=== PATIENT | male | born 1985 | race Caucasian/White ===

== ENCOUNTER → 2016-10-24 | Outpatient (CLI) | payer OTHER ==
--- NOTE | 2016-10-24 09:05 | KCIC ---
PROCEDURE Complete abdominal ultrasound. HISTORY Abdominal pain, abdominal wall mass. TECHNIQUE Real-time ultrasound imaging of the abdomen is performed. COMPARISON None. FINDINGS Grayscale images in the midline in the area of palpable concern are unremarkable. The liver measures 17.9 cm in length and is increased in echogenicity. Considerations include fatty infiltration or hepatitis. Portal flow is hepatopetal. Size is borderline enlarged. The pancreas is homogeneous in appearance and no focal enlargement is seen. Pancreas tail is not well seen. The gallbladder appears normal and no gallstones or gallbladder wall thickening is seen. No pericholecystic fluid is seen. No positive Prater's sign was elicited during transducer examination of the gallbladder. No extrahepatic biliary ductal dilatation is seen and the extrahepatic bile duct measures 4 mm. The right kidney measures 11.2 cm in length and no hydronephrosis or renal mass or perinephric fluid collection is seen. The left kidney measures 11.6 cm in length and no hydronephrosis or renal mass or perinephric fluid collection is seen. The spleen measures 9.5 cm in length and is homogeneous in appearance. No focal aneurysmal dilatation of the abdominal aorta is seen. Proximal abdominal aorta is obscured. The IVC is unremarkable. No ascites is seen. IMPRESSION 1. Increased echogenicity of the liver, considerations include fatty infiltration or hepatitis. 2. Borderline hepatomegaly. 3. Midline abdominal area of palpable concern is negative sonographically. Electronically signed by: Taco Teresa MD (Oct 24, 2016 09:04:31)
== END | disposition home or self-care (01) ==
LOC: KCIC US 07:42
PROVIDERS: ATTEND Nurse Practitioner Family
DX: K76.89 Other specified diseases of liver (principal); R16.0 Hepatomegaly, not elsewhere classified
CPT/HCPCS: 76700

== ENCOUNTER 2021-10-11 10:47 | Emergency (ER) | payer BC, OTHER ==
[~2021-10-11] VITALS: Ht 177.8 cm; Wt 131.0 kg
[2021-10-11] MEDS ORDERED: IV RINGERS,LACTATED 1000ML 1,000 ML IV SCH (11:30)
[2021-10-11 11:37] LABS: BASO # 0.1 x10^3/uL (0.0-0.2); BASO % 1 % (0-3); EOS # 0.2 x10^3/uL (0.0-0.7); EOS % 2 % (0-3); HEMATOCRIT 41.8 % (39.0-53.0); HEMOGLOBIN 14.1 g/dL (13.0-17.5); LYMPH # 2.9 x10^3/uL (1.0-4.8); LYMPH % 42 % (24-48); MEAN CORPUSCULAR HEMOGLOBIN 30 pg (25-35); MEAN CORPUSCULAR HGB CONC 34 g/dL (31-37); MEAN CORPUSCULAR VOLUME 88 fL (79-100); MONO # 0.5 x10^3/uL (0.0-1.1); MONO % 8 % (0-9); NEUT # 3.2 x10^3/uL (1.8-7.7); NEUT % 47 % (31-73); PLATELET COUNT 364 x10^3/uL (140-400); RED BLOOD COUNT 4.78 x10^6/uL (4.30-5.70); RED CELL DISTRIBUTION WIDTH 13.8 % (11.5-14.5); WHITE BLOOD COUNT 6.9 x10^3/uL (4.0-11.0)
[2021-10-11 11:45] LABS: CALCIUM 9.6 mg/dL (8.5-10.1); GFR 84.5; POTASSIUM 4.2 mmol/L (3.5-5.1)
[2021-10-11 11:50] LABS: ALBUMIN 4.1 g/dL (3.4-5.0); ALBUMIN/GLOBULIN RATIO 1.1 (1.0-1.7); TOTAL BILIRUBIN 0.4 mg/dL (0.2-1.0); TOTAL PROTEIN 7.9 g/dL (6.4-8.2)
--- NOTE | 2021-10-11 12:05 | RAD ---
EXAMINATION: XR CHEST 1V CLINICAL HISTORY: Chest pain radiating to back and LUE. EXAM DATE/TIME: 10/11/2021 11:25 AM COMPARISON: None FINDINGS: Lines, Tubes, and Devices: None. Cardiomediastinal Silhouette: Within normal limits. Lungs and Pleura: No evidence of focal airspace consolidation or pleural effusion. Pulmonary vasculat ure unremarkable. Bones and Soft Tissues: No acute osseous abnormality. IMPRESSION: No evidence of acute cardiopulmonary abnormality. Electronically signed by: Nikhil Cabral DO (10/11/2021 11:42 AM) [id number]
--- NOTE | 2021-10-11 12:11 | PHYS DOC ---
Past Medical History Past Medical History: GERD Additional Past Surgical Histo: GI procedure x2 in childhood for reflux Smoking Status: Former Smoker Alcohol Use: Occasionally General Adult EDM: Chief Complaint: CHEST PAIN HPI: HPI: Patient is a 36 year old male with past medical history including GERD who presents with 1 week history of chest pain. She rates his pain 5/10 and constant at rest. He states that originally, he believed it was due to his GERD, as he had a foul taste in the back of his mouth. He has taken Pepcid, but is not relieving his symptoms significantly. Today, he states that the pain is radiating to his back and down his left upper extremity. Patient denies associated symptoms including headache, diaphoresis, abdominal pain, nausea/vomiting. Patient states he had 2 procedures done in first grade in fifth grade regarding his reflux disease. He has no other complaints at this time. Review of Systems: Review of Systems: Constitutional: Denies fever, chills or generalized weakness Eyes: Denies change in visual acuity, visual field deficits or discharge HENT: Denies ear pain, nasal congestion or sore throat Respiratory: Denies cough or shortness of breath Cardiovascular: See HPI GI: See HPI : Denies dysuria or hematuria Musculoskeletal: Denies back pain or joint pain Integument: Denies rash or other skin lesion Neurologic: Denies headache, focal weakness or sensory changes Heart Score: C/O Chest Pain: Yes HEART Score for Chest Pain: HEART Score for Chest Pain Response (Comments) Value History Slighlty/Non-Suspicious 0 ECG Normal 0 Age < 45 0 Risk Factors 1 or 2 Risk Factors 1 Troponin < Normal Limit 0 Total 1 Risk Factors: Risk Factors: obesity Risk Scores: Score 0 - 3: 2.5% MACE over next 6 weeks - Discharge Home Score 4 - 6: 20.3% MACE over next 6 weeks - Admit for Clinical Observation Score 7 - 10: 72.7% MACE over next 6 weeks - Early Invasive Strategies Current Medications: Current Medications Medications (Trade) Dose Ordered Sig/Jose Start Time Stop Time Status Last Admin Dose Admin Ringer's Solution 1,000 ml @ 1,000 mls/hr Q1H 10/11/21 11:30 10/11/21 12:29 10/11/21 11:32 1,000 MLS/HR Allergies: Allergies: Allergies Coded Allergies Type Severity Reaction Last Updated Verified Penicillins Allergy Intermediate UNKNOWN 10/11/21 Yes amoxicillin Allergy Intermediate UNKNOWN 10/11/21 Yes Physical Exam: PE: Constitutional: Obese, no acute distress, non-toxic appearance. HENT: Normocephalic, atraumatic, bilateral external ears normal, nose normal. Eyes: EOMI, conjunctiva normal, no discharge. Neck: Normal range of motion, no stridor, no JVD. Cardiovascular: Heart regular rate and rhythm. No apparent murmurs, rubs or gallops. Lungs & Thorax: Equal thoracic expansion, no increased work of breathing appreciated, no chest wall tenderness on palpation, breath sounds clear to au scultation in all lung leo. Abdomen: Soft, no tenderness, no masses, no pulsatile masses. Skin: Warm, dry, no erythema, no rash. Back: No step-off, no tenderness. Extremities: No cyanosis, no clubbing, ROM intact, no edema. Neurologic: Alert and oriented x4, normal motor function, normal sensory function, no focal deficits noted. Current Patient Data: Labs: Laboratory Tests Test 10/11/21 11:28 10/11/21 12:25 White Blood Count 6.9 x10^3/uL (4.0-11.0) Red Blood Count 4.78 x10^6/uL (4.30-5.70) Hemoglobin 14.1 g/dL (13.0-17.5) Hematocrit 41.8 % (39.0-53.0) Mean Corpuscular Volume 88 fL (79-100) Mean Corpuscular Hemoglobin 30 pg (25-35) Mean Corpuscular Hemoglobin Concent 34 g/dL (31-37) Red Cell Distribution Width 13.8 % (11.5-14.5) Platelet Count 364 x10^3/uL (140-400) Neutrophils (%) (Auto) 47 % (31-73) Lymphocytes (%) (Auto) 42 % (24-48) Monocytes (%) (Auto) 8 % (0-9) Eosinophils (%) (Auto) 2 % (0-3) Basophils (%) (Auto) 1 % (0-3) Neutrophils # (Auto) 3.2 x10^3/uL (1.8-7.7) Lymphocytes # (Auto) 2.9 x10^3/uL (1.0-4.8) Monocytes # (Auto) 0.5 x10^3/uL (0.0-1.1) Eosinophils # (Auto) 0.2 x10^3/uL (0.0-0.7) Basophils # (Auto) 0.1 x10^3/uL (0.0-0.2) D-Dimer (Kamini) < 0.27 ug/mlFEU Sodium Level 143 mmol/L (136-145) Potassium Level 4.2 mmol/L (3.5-5.1) Chloride Level 105 mmol/L (98-107) Carbon Dioxide Level 30 mmol/L (21-32) Anion Gap 8 (6-14) Blood Urea Nitrogen 9 mg/dL (8-26) Creatinine 1.0 mg/dL (0.7-1.3) Estimated GFR (Cockcroft-Gault) 84.5 BUN/Creatinine Ratio 9 (6-20) Glucose Level 102 mg/dL (70-99) Calcium Level 9.6 mg/dL (8.5-10.1) Magnesium Level 2.0 mg/dL (1.8-2.4) Total Bilirubin 0.4 mg/dL (0.2-1.0) Aspartate Amino Transf (AST/SGOT) 18 U/L (15-37) Alanine Aminotransferase (ALT/SGPT) 36 U/L (16-63) Alkaline Phosphatase 52 U/L (46-116) Troponin I High Sensitivity 6 ng/L (4-75) Total Protein 7.9 g/dL (6.4-8.2) Albumin 4.1 g/dL (3.4-5.0) Albumin/Globulin Ratio 1.1 (1.0-1.7) Lipase 108 U/L (73-393) Urine Color (Auto) Colorless Urine Turbidity Clear Urine pH (Auto) 7.0 (<5.0-8.0) Urine Specific [place] 1.003 (1.000-1.030) Urine Protein (Auto) Negative mg/dL (Negative) Urine Glucose (Auto)(UA) Negative mg/dL (Negative) Urine Ketones (Auto) Negative mg/dL (Negative) Urine Blood (Auto) Negative (Negative) Urine Nitrite Negative (Negative) Urine Bilirubin (Auto) Negative (Negative) Urine Urobilinogen (Auto) Normal mg/dL (Normal) Urine Leukocyte Esterase (Auto) Negative (Negative) Urine RBC 0 /HPF (0-2) Urine WBC 0 /HPF (0-4) Urine Squamous Epithelial Cells Occ /LPF Urine Bacteria 0 /HPF (0-FEW) 10/11/21 11:28 Laboratory Tests 10/11/21 11:28 Vital Signs: Vital Signs Date Time Temp Pulse Resp B/P (MAP) Pulse Ox O2 Delivery O2 Flow Rate FiO2 10/11/21 12:56 66 18 150/84 (106) 100 Room Air 10/11/21 12:15 70 13 167/87 (113) 99 Room Air 10/11/21 12:02 64 14 165/86 (112) 99 Room Air 10/11/21 11:02 66 154/85 (108) 100 Room Air 10/11/21 11:01 151/76 (101) Room Air 10/11/21 10:47 98.1 81 18 178/83 (114) 99 Room Air 98.1 EKG: EKG: EKG Interpreted by Dr. Rodriguez at 1056: Regular rate and rhythm 65 bpm with no ectopic beats. MA 160 ms/QTc 388 ms. No STEMI. Radiology/Procedures: Radiology/Procedures: PROCEDURE: PORTABLE CHEST 1V EXAMINATION: XR CHEST 1V CLINICAL HISTORY: Chest pain radiating to back and LUE. EXAM DATE/TIME: 10/11/2021 11:25 AM COMPARISON: None FINDINGS: Lines, Tubes, and Devices: None. Cardiomediastinal Silhouette: Within normal limits. Lungs and Pleura: No evidence of focal airspace consolidation or pleural effusion. Pulmonary vasculature unremarkable. Bones and Soft Tissues: No acute osseous abnormality. IMPRESSION: No evidence of acute cardiopulmonary abnormality. Electronically signed by: Nikhil Cabral DO (10/11/2021 11:42 AM) [id number] Course & Med Decision Making: Course & Med Decision Making Pertinent Labs and Imaging studies reviewed. (See chart for details) Patient is a 36-year-old male with past medical history of GERD who presents with 1 week history of chest pain that is now radiating to his back and his left upper extremity. Work-up today will consist of labs that include troponin and D-dimer, EKG, chest x-ray, urinalysis. Lab work is reassuring as well as EKG. Patient's symptoms do not seem to be related to cardiac or pulmonary pathology. Patient does not have a academic support assistant that he follows with anymore. He was provided contact information to establish care with a GI specialist. Return precautions were provided patient understands and is agreeable to discharge plan. Yehuda Disclaimer: Yehuda Disclaimer: This electronic medical record was generated, in whole or in part, using a voice recognition dictation system. Departure Departure Impression: Primary Impression: Atypical chest pain Additional Impressions: Hx of gastroesophageal reflux (GERD) Elevated blood pressure reading Disposition: HOME / SELF CARE / HOMELESS Condition: STABLE Referrals: NO PCP (PCP) DIANA GARZA MD Patient Instructions: Chest Pain (Nonspecific), [id number], Diet for Gastroesophageal Reflux Disease, Adult, [id number], Gastroesophageal Reflux Disease, Adult, [id number] Additional Instructions: EMERGENCY DEPARTMENT GENERAL DISCHARGE INSTRUCTIONS Thank you for coming to [facility] Emergency Department (ED) today and trusting us with you care. We trust that you had a positive experience in our Emergency Department. If you wish to speak to the department management, you may call the director at . YOUR FOLLOW UP INSTRUCTIONS ARE FOLLOWS: 1. Follow up with your primary care doctor. If you do not have a primary doctor, please ask for a resource list of physicians or clinics that may be able to assist you with follow up care. 2. The emergency provider has interpreted your imaging studies, if any were ordered. The radiology customer relationship specialist also reviewed them. If there is a change in the findings, you will be notified in 48 hours when at all possible. 3. If a lab test or culture has been done, your results will be reviewed and you will be notified if you need a change in treatment. 4. Continue taking Prilosec that you previously purchased. Follow instructions verbalized to you and refer to the printouts if needed. ADDITIONAL INSTRUCTIONS AND INFORMATION: 1. Your care today has been supervised by a physician who is specially trained in emergency care. Many problems require more than one evaluation for a complete diagnosis and treatment. We recommend that you schedule your follow up appointment as recommended to ensure complete treatment of you illness or injury. If you are unable to obtain follow up care and continue to have a problem, or if your condition worsens, we recommend that you return to the ED. 2. We are not able to safely determine your condition over the phone nor are we able to give sound medical advice over the phone. For these safety reasons, if you call for medical advice we will ask you to come to the ED for further evaluation. 3. If you have any questions regarding these discharge instructions please call the ED at . SAFETY INFORMATION: In the interest of safety, wellness, and injury prevention; we encourage you to wear your seat belt, if you smoke; quite smoking, and we encourage family to use a protective helmet for bicycling and other sporting events that present an increased risk for head injury. IF YOUR SYMPTOMS WORSEN OR NEW SYMPTOMS DEVELOP, OR YOU HAVE CONCERNS ABOUT YOUR CONDITION; OR IF YOUR CONDITION WORSENS WHILE YOU ARE WAITING FOR YOUR FOLLOW UP APPOINTMENT; EITHER CONTACT YOUR PRIMARY CARE DOCTOR, THE PHYSICIAN WHOSE NAME AND NUMBER YOU WERE GIVEN, OR RETURN TO THE ED IMMEDIATELY. CARLO KHAN Oct 11, 2021 12:11
[2021-10-11 12:56] VITALS: BP 150/84
[2021-10-11 13:05] LABS: BACTERIA,URINE 0 /HPF (0-FEW); RBC,URINE 0 /HPF (0-2); WBC,URINE 0 /HPF (0-4)
--- NOTE | 2021-10-11 17:25 | EKG ---
[facility] [address] [place] [address] Test Date: 2021-10-11 Test Time: 10:54:33 Pat Name: ARTHUR HE Department: Room: Gender: Call Center Supervisor: : 1985 Requested By: CARLO KHAN Order Number: [id number] Reading MD: Bill Comer Measurements Intervals [place] Rate: 65 P: 43 AL: 160 QRS: 57 QRSD: 108 T: 60 QT: 388 QTc: 408 Interpretive Statements SINUS RHYTHM NORMAL ECG RI6.02 No previous ECG available for comparison Electronically Signed On 10-21-2021 9:06:48 CDT by Bill Comer
--- NOTE | 2021-10-11 17:26 | EKG ---
[facility] [address] [place] [address] Test Date: 2021-10-11 Test Time: 11:34:14 Pat Name: ARTHUR HE Department: Room: Gender: M [employer]: : 1985 Requested By: CARLO KHAN Order Number: [id number] Reading MD: Bill Comer Measurements Intervals [place] Rate: 64 P: 29 [place]: 168 QRS: 29 QRSD: 100 T: 44 QT: 386 QTc: 402 Interpretive Statements SINUS RHYTHM Electronically Signed On 10-21-2021 9:06:39 CDT by Bill Comer
== END 2021-10-11 13:01 | disposition home or self-care (01) ==
LOC: ER 10:47
DX: R07.89 Other chest pain (principal); K21.9 Gastro-esophageal reflux disease without esophagitis; Z87.891 Personal history of nicotine dependence; Z88.0 Allergy status to penicillin; Z88.1 Allergy status to other antibiotic agents
CPT/HCPCS: 36415; 71045; 80053; 81001; 83690; 83735; 84484; 85025; 85379; 93005; 96360; 99285; J7120